=== PATIENT | male | born 1960 ===

== ENCOUNTER 2017-10-03 09:29 | Emergency (ER) | payer OTHER ==
[2017-10-03 09:48] VITALS: BP 150/79; PULSE 67; RESP 95; TEMP 99.1; O2SAT 95
[2017-10-03] MEDS ORDERED: Lidocaine 5% Patch TD STA (09:57)
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
[2017-10-03] MEDS ORDERED: Lidocaine 5% Patch TD ONE (10:04)
== END 2017-10-03 10:26 | disposition home or self-care (01) ==
LOC: C.ER 09:29
DX: S39.012A Strain of muscle, fascia and tendon of lower back, initial encounter (principal); S29.012A Strain of muscle and tendon of back wall of thorax, initial encounter; V89.2XXA Person injured in unspecified motor-vehicle accident, traffic, initial encounter
CPT/HCPCS: 96372; 99284; J1885